=== PATIENT | male | born 1960 | race Caucasian/White ===

== ENCOUNTER 2019-02-25 13:09 | Emergency (ER) | payer OTHER ==
--- NOTE | 2019-02-25 13:40 | ED ---
Adult Trauma - HPI Summary HPI Summary: Patient is a 4-year-old male who presents emergency department for evaluation of a fall. Patient was moving a heavy box in his work truck when the strap broke and he fell back out of the truck and hit his head on the concrete. Pt. denies LOC. Pt. c/o pain to back of his and right shoulder pain. He denies neck pain, CP, SOB, abd. pain, numbness, tingling or weakness. Is not anticoagulated. Sxs are mild in severity. Movement makes sxs worse. Rest makes sxs better. Associated sxs of abrasion to posterior scalp. Unaware of last tetanus. - History of Current Complaint Chief Complaint: EDExtremityUpper Stated Complaint: FALL PER EMS Time Seen by Provider: 02/25/19 13:25 Hx Obtained From: Patient Pain Intensity: 6 - Allergy/Home Medications Allergies/Adverse Reactions: Allergies Allergy/AdvReac Type Severity Reaction Status Date / Time No Known Allergies Allergy Verified 02/25/19 14:29 Home Medications: Home Medications Amlodipine Besylate/Benazepril [Amlodipine-Benazepril 2.5-10] 1 each PO DAILY [History Confirmed 02/25/19] Levothyroxine TAB* [Synthroid TAB*] 125 mcg PO DAILY 02/25/19 [History Confirmed 02/25/19] PMH/Surg Hx/FS Hx/Imm Hx Previously Healthy: Yes Infectious Disease History: No Infectious Disease History: Denies: Traveled Outside the [place] in Last 30 Days - Family History Known Family History: Positive: Non-Contributory - Social History Occupation: Employed Full-time Lives: With Family Alcohol Use: Weekly Alcohol Amount: "a beer once in a while," 0-5 a week Substance Use Type: Reports: Excessive Caffeine Substance Use Comment - Amount & Last Used: 3-4 cups/day Smoking Status (MU): Never Smoked Tobacco Review of Systems Eyes: Negative Cardiovascular: Negative Respiratory: Negative Gastrointestinal: Negative Negative: Abdominal Pain, Vomiting, Nausea Positive: Other - Right shoulder pain Positive: Other - abrasion Positive: Headache. Negative: Weakness, Paresthesia, Numbness, Syncope All Other Systems Reviewed And Are Negative: Yes Physical Exam Triage Information Reviewed: Yes Vital Signs On Initial Exam: Initial Vitals Temp Pulse Resp BP Pulse Ox 98.0 F 56 16 159/79 97 02/25/19 13:17 02/25/19 13:17 02/25/19 13:17 02/25/19 13:17 02/25/19 13:17 Vital Signs Reviewed: Yes Appearance: Positive: Well-Appearing - Pt. sitting up in bed in NAD. Skin: Positive: Warm, Dry Head/Face: Positive: Other - Hematoma to posterior scalp with superficial abrasion with mild bleeding. Eyes: Positive: Normal, EOMI, [place], Conjunctiva Clear Neck: Positive: Supple, Nontender - no midline tenderness Respiratory/Lung Sounds: Positive: Clear to Auscultation, Breath Sounds Present Cardiovascular: Positive: Normal, RRR Abdomen Description: Positive: Nontender, Soft Musculoskeletal: Positive: Normal, Strength/ROM Intact Neurological: Positive: Normal, Alert, Oriented to Person Place, Time, CN Intact II-III Psychiatric: Positive: Affect/Mood Appropriate - [place] Coma Scale Best Eye Response: 4 - Spontaneous Best Motor Response: 6 - Obeys Commands Best Verbal Response: 5 - Oriented Coma Scale Total: 15 Diagnostics - Vital Signs Vital Signs Temp Pulse Resp BP Pulse Ox 02/25/19 13:17 98.0 F 56 16 159/79 97 - Laboratory Lab Statement: Any lab studies that have been ordered have been reviewed, and results considered in the medical decision making process. Adult Trauma Course/Dx - Course Course Of Treatment: Tetanus updated. Brain CT was ordered to rule out fracture , bleed. CT Shows hematoma without intracranial injury or fracture, reading per radiology. Shoulder x-ray shows before meals separation, reading per radiology. Results were discussed. Patient placed arm swelling. Advised ice to affected areas intermittently. Wound was cleaned. Advised follow up with orthopedics for further evaluation of AC separation. Tylenol or Motrin for pain as directed. Patient understands and agrees with plan. - Diagnoses Differential Diagnosis/HQI/PQRI: Positive: Abrasion(s), Contusion(s), Fracture, Hematoma(s), Laceration(s) Provider Diagnoses: Scalp hematoma, AC separation Discharge - Sign-Out/Discharge Documenting (check all that apply): Patient Departure Patient Received Moderate/Deep Sedation with Procedure: No - Discharge Plan Condition: Good Disposition: HOME Patient Education Materials: Acromioclavicular Separation (ED), Head Injury (ED ) Referrals: [facility] [Outside] Alek Queen MD [Medical Doctor] - Additional Instructions: Schedule a follow up appointment with orthopedics Ice affected areas intermittently Tylenol or Motrin for pain as directed Return to ER if symptoms change or worsen - Billing Disposition and Condition Condition: GOOD Disposition: Home
[2019-02-25] MEDS ORDERED: Tetan/Diph/Pertus SYR(Tdap)* 0.5 ML SYR(BOOSTRIX) use SYR contains LATEX IM ONE (14:31)
[2019-02-25] MEDS ORDERED: Ibuprofen TAB* 600 MG PO ONE (15:33)
[2019-02-25 16:09] VITALS: BP 139/76
== END 2019-02-25 16:06 | disposition home or self-care (01) ==
LOC: ED 13:09
DX: S00.03XA Contusion of scalp, initial encounter (principal); S43.101A Unspecified dislocation of right acromioclavicular joint, initial encounter; Z23 Encounter for immunization; W17.89XA Other fall from one level to another, initial encounter; Y92.9 Unspecified place or not applicable; Y99.0 Civilian activity done for income or pay; Z79.899 Other long term (current) drug therapy
CPT/HCPCS: 70450; 90471; 90715; 99283; A9270-GY